=== PATIENT | female | born 1970 | race Caucasian/White ===

== ENCOUNTER 2017-07-10 17:10 | Emergency (ER) | payer MEDICAID, OTHER ==
[2017-07-10] MEDS: HYDROCODONE/APAP (5/325) TAB PO ×2 (22:07→23:37)
[2017-07-10] MEDS: IBUPROFEN 800 MG TAB PO (22:07)
[2017-07-11 00:23] LABS: TROPONIN-I 0.039 ng/ml (0.00-0.12)
== END 2017-07-11 00:39 | disposition home or self-care (01) ==
LOC: E/R 07-11 00:39
DX: M94.0 Chondrocostal junction syndrome [Tietze] (principal); R40.2142 Coma scale, eyes open, spontaneous, at arrival to emergency department; R40.2252 Coma scale, best verbal response, oriented, at arrival to emergency department; R40.2362 Coma scale, best motor response, obeys commands, at arrival to emergency department
CPT/HCPCS: 84484; 93005; 99284-25